=== PATIENT | female | born 1990 | race Caucasian/White ===

== ENCOUNTER → 2022-03-09 | Outpatient (CLI) | payer BC ==
[2022-03-09 15:16] LABS: T4, Free (Free Thyroxine) 1.08 ng/dL (0.800-1.800)
== END | disposition home or self-care (01) ==
LOC: LABWHC1 09:33
PROVIDERS: ATTEND Obstetrics & Gynecology
DX: N80.9 Endometriosis, unspecified (principal); N97.9 Female infertility, unspecified
CPT/HCPCS: 36415; 84144; 84439; 84443; 84445; 84481

== ENCOUNTER → 2022-04-04 | Outpatient (CLI) | payer BC ==
[2022-04-04 23:39] LABS: Basophils # (A) 0.04 X 10*3/uL (0.00-0.10); Basophils % (A) 0.4 %; Eosinophils # (A) 0.06 X 10*3/uL (0.04-0.35); Eosinophils % (A) 0.5 %; HCT 42.6 % (37.2-46.3); HGB 14.1 g/dL (12.0-15.0); Immature Grans, Automated 0.3 %; Lymphocytes # (A) 2.44 X 10*3/uL (0.90-5.00); Lymphocytes % (A) 21.9 %; MCH 31.1 pg (27.0-32.0); MCHC 33.1 g/dL (32.0-37.0); MCV 93.8 fL (80.0-97.0); Mean Platelet Volume 9.3 fL (9.5-12.2); Monocytes % (A) 6.3 %; NRBC Per 100 WBC 0 /100 WBCS (0.0-0.0); Neutrophils # (A) 7.88 X 10*3/uL (1.80-7.70); Neutrophils % (A) 70.6 %; Platelet Count 236 X 10*3/uL (140-440); RBC 4.54 X 10*6/uL (4.10-5.20); RDW 12.5 % (11.5-14.5); WBC 11.15 X 10*3/uL (4.50-10.00)
== END | disposition home or self-care (01) ==
LOC: LABPAT 15:34
PROVIDERS: ATTEND Obstetrics & Gynecology
DX: Z01.812 Encounter for preprocedural laboratory examination (principal); N80.9 Endometriosis, unspecified
CPT/HCPCS: 85025

== ENCOUNTER 2022-04-24 05:49 | Day surgery (SDC) | payer BC ==
[2022-04-19 16:12] VITALS: BMI 21.6
--- NOTE | 2022-04-20 13:10 | P.HPOB ---
History of Present Illness H&P Date: 04/20/22 Chief Complaint: Endometriosis, Trying To Conceive This is a 31 year old female G0 who presents after being referred from PCP after endometriosis implants were seen throughout the pelvis during a laparoscopic appendectomy. The patient has no prior diagnosis of endometriosis. However, she has been trying to conceive for 12-18 months without succes. She does reports dyspareunia and very painful periods that lead to emesis at times. NSAIDs relieve the pain somewhat during menses. Past Medical History: Unremarkable Past Surgical History: Laparoscopic Appendectomy, tonsillectomy, wisdom teeth Past Medical History Additional Past Medical History / Comment(s): ENDOMETRIOSIS. SEASONAL ALLERGIES History of Any Multi-Drug Resistant Organisms: None Reported Past Surgical History: Appendectomy, Tonsillectomy Additional Past Surgical History / Comment(s): WISDOM REMOVED UNDER ANETHESIA AT AGE 17 AND 19 Past Anesthesia/Blood Transfusion Reactions: No Reported Reaction Smoking Status: Current every day smoker - Past Family History Mother Family Medical History: No Reported History Medications and Allergies Home Medications Medication Instructions Recorded Confirmed Type Cetirizine HCl [Zyrtec] 10 mg PO DAILY 04/19/22 04/19/22 History Fluticasone Nasal [place] [Flonase 1 spray EA NOSTRIL DAILY 04/19/22 04/19/22 History Nasal [place]] Montelukast [Singulair] 10 mg PO HS 04/19/22 04/19/22 History Allergies Allergy/AdvReac Type Severity Reaction Status Date / Time Penicillins Allergy Rash/Hives Verified 04/19/22 16:03 Exam Intake and Output 04/19/22 04/20/22 04/20/22 22:59 06:59 14:59 Other: Weight 64.41 kg Focus exam is performed. This is a health appearing female in no apparent distress. Pelvic exam is unremarkable. No masses or tenderness are appreciated on bimanual exam. Assessment and Plan Assessment: 31 year old G0 with endometriosis visualized during prior surgery who suffers from infertility and painful menses Plan: Proceed with diagnostic laparoscopy, possible resection and fulgaration of endometriosis. Risks of bleeding, infection, and damage to surrounding structures including bowel/bladder/ureters discussed. Discussed very small risk of laparotomy. Time with Patient: Greater than 30
[~2022-04-24 05:49] MED LIST: Pre Op ABX Message 1 EACH MISC MISCELLANE ONE
[2022-04-24] MEDS ORDERED: LIDOCAINE 1% (10MG/ML) FOR IV START INTRADERMA PRN (06:24)
[2022-04-24] MEDS ORDERED: DEXAMETHASONE SOD PHOSPHATE 4 MG/ML 1 ML VIAL IV ONE (06:24)
[2022-04-24] MEDS ORDERED: MIDAZOLAM 2 MG/2 ML VIAL IV PRN (06:24)
[2022-04-24] MEDS ORDERED: ONDANSETRON 4 MG/2 ML VIAL IVP ONE ×2 (06:24→06:40)
[2022-04-24] MEDS ORDERED: LACTATED RINGERS 1,000 ML IV SCH (06:24)
[2022-04-24] MEDS ORDERED: LACTATED RINGERS 1,000 ML IV ONE ×2 (06:31→07:38)
[2022-04-24] MEDS ORDERED: ROCURONIUM 10 MG/ML (5 ML VIAL) IV ONE (06:55)
[2022-04-24] MEDS ORDERED: NEOSTIGMINE 1 MG/ML 10 ML VIAL ONE (06:55)
[2022-04-24] MEDS ORDERED: GLYCOPYRROLATE 0.2 MG/ML 2 ML VIAL ONE (06:55)
[2022-04-24] MEDS ORDERED: LIDOCAINE 2% INJ 20 MG/ML (2 ML VIAL) ONE (06:55)
[2022-04-24] MEDS ORDERED: fentaNYL (PF) 50 MCG/ML 2 ML AMP ONE (06:55)
[2022-04-24] MEDS ORDERED: MIDAZOLAM 2 MG/2 ML VIAL ONE (06:55)
[2022-04-24] MEDS ORDERED: SUCCINYLCHOLINE CHLORIDE 200 MG/10 ML VIAL IV ONE (06:55)
[2022-04-24] MEDS ORDERED: PROPOFOL 10 MG/ML 20 ML VIAL IV ONE (06:55)
[2022-04-24] MEDS ORDERED: HYDROmorphone 0.5 MG/0.5 ML SYRINGE IVP PRN (07:00)
[2022-04-24] MEDS ORDERED: BUPIVACAINE (PF) 0.25% 30 ML VIAL SQ ONE ×2 (07:18→07:36)
--- NOTE | 2022-04-24 07:55 | P.OP ---
Date of Procedure: 04/24/22 Preoperative Diagnosis: Endometriosis, Dysmenorrhea, Infertility Postoperative Diagnosis: Same Procedure(s) Performed: Laparoscopic Fulgaration of Endometriosis Implants: None Anesthesia: AZAR Surgeon: Janelle Gillespie Medical Records Clerk #1: Lindsey Briceño Estimated Blood Loss (ml): 2 IV fluids (ml): 600 Urine output (ml): 25 Pathology: none sent Condition: stable Disposition: same day Indications for Procedure: 31 year old G0 with endometriosis visualized during prior surgery who suffers from infertility and painful menses. Risks, benefits, and alternatives of surgery discussed including risks bleeding, infection, and damage to surrounding structures including bowel/bladder/ureters discussed. Discussed very small risk of laparotomy. Patient understood the risks and consents to proceed with surgery. Operative Findings: Normal-sized, anteverted uterus noted that sounded 8cm. A small 1cm subserosal fibroid on the posterior fundus of the uterus is noted. Bilateral fallopian tubes are grossly normal-appearing. Bilateral ovaries are grossly normal- appearing without any noted endometriomas or other masses. Several small subcentimeter endometrial implants are noted on the left uterosacral ligament, the peritoneum of the posterior cul-de-sac, and the right-sided posterior broad ligament. Description of Procedure: Patient was taken to the OR with IV fluid running and pneumatic compression stockings on both legs. General anesthesia was obtained without difficulty. The patient was placed in the dorsal lithotomy position with Peter-type stirrups with knees bent at 30 degree angles. Examination under anesthesia revealed a normal-sized, anteverted uterus. The patient as prepared and draped. The bladder was emptied. A speculum was placed into the vagina. The anterior lip of the cervix was grasped with a single-toothed tenaculum. The uterus was sounded to 8 cm. A uterine manipulator was introduced. A vertical skin incision was made at the inferior umbilical fold. The Veress needle was introduced into the peritoneal cavity at a straight angle without difficulty. A hanging drop test was performed to validate intraperitoneal placement. The pneumoperitoneum was established with CO2 gas to a pressure of 15mmHg. A 5mm trocar was inserted into the abdomen. Intraabdominal placement was confirmed with the laparoscope. Intraabdominal survey revealed lack of any visceral or vascular injury. The pelvic anatomy was noted as above. A few small areas of endometrial implants were noted along the left uterosacral ligament, on the peritoneum of the posterior cul-de-sac, and along the right-side of the posterior broad ligament. These were fulgarated with laparoscopic monopolar hook to a depth of 1mm. The patient tolerated the procedure well. All instruments were removed from the abdomen and vagina, and all counts were correct times two. The patient was taken to the recovery room in stable condition.
[2022-04-24] MEDS ORDERED: KETOROLAC 15 MG/ML 1 ML VIAL IVP ONE (08:26)
[2022-04-24 08:32] VITALS: TEMP 97.9
[2022-04-24 09:08] VITALS: PULSE 70
[2022-04-24 09:36] VITALS: BP 127/84; RESP 16
== END 2022-04-24 10:03 | disposition home or self-care (01) ==
LOC: OR 05:49
PROVIDERS: ATTEND Obstetrics & Gynecology
DX: N80.3C2 Endometriosis of the left uterosacral ligament, unspecified depth (principal); N80.329 Endometriosis of the posterior cul-de-sac, unspecified depth; D25.2 Subserosal leiomyoma of uterus; Z79.1 Long term (current) use of non-steroidal anti-inflammatories (NSAID); Z79.51 Long term (current) use of inhaled steroids; Z79.52 Long term (current) use of systemic steroids; Z79.899 Other long term (current) drug therapy; F17.210 Nicotine dependence, cigarettes, uncomplicated; Z90.49 Acquired absence of other specified parts of digestive tract; Z98.890 Other specified postprocedural states; Z88.0 Allergy status to penicillin
CPT/HCPCS: 58662; 81025; J2250; J0330; J1100; J2710; J2405; J3010; J1885; J2704; J1170; J2001